=== PATIENT | female | born 1965 | race Caucasian/White ===

== ENCOUNTER → 2020-10-10 14:45 | Outpatient (BNVA) | payer OTHER, MEDICAID, SELFPAY | PROVIDERS: Visit Provider Anesthesiology | DX: Z76.89 Persons encountering health services in other specified circumstances (principal) ==

== ENCOUNTER → 2021-05-14 15:08 | Outpatient (BNVA) | payer OTHER, MEDICAID, SELFPAY | PROVIDERS: Visit Provider Anesthesiology ==

== ENCOUNTER 2021-08-05 06:27 | Outpatient (REF) | payer OTHER, MEDICAID, SELFPAY | END 2021-08-05 06:28 | disposition home or self-care (01) | LOC: HO.RADIR 06:27 | PROVIDERS: Visit Provider Anesthesiology | DX: M54.81 Occipital neuralgia (principal); G89.4 Chronic pain syndrome; S12.9XXA Fracture of neck, unspecified, initial encounter | CPT/HCPCS: 64405 ==

== ENCOUNTER → 2021-08-11 10:37 | Outpatient (BNVA) | payer OTHER, MEDICAID, SELFPAY | PROVIDERS: Visit Provider Anesthesiology ==

== ENCOUNTER 2025-09-11 11:36 | Outpatient (REF) | payer OTHER, SELFPAY ==
--- NOTE | ~2025-09-11 | MM_ITS ---
EXAMINATION: DXA BONE DENSITY AXIAL HISTORY: OSTEOPOROSIS TECHNIQUE: [email or web address] Dual energy absorptiometry (DEXA) of the lumbar spine, total left hip, and femoral neck was performed. COMPARISON: There are no prior studies for comparison. FINDINGS: The bone mineral density of the lumbar spine is 1.265 g/cm2, corresponding to a T-score of 0.5, and a Z-score of 2.0. This is indicative of normal bone mineral density. The bone mineral density of the left total hip is 1.050 g/cm2, corresponding to a T-score of 0.3, and a Z-score of 1.4. This is indicative of normal bone mineral density. The bone mineral density of the left femoral neck is 0.927 g/cm2, corresponding to a T-score of -0.8, and a Z-score of 0.6. This is indicative of normal bone mineral density. MM/XR DEXA axial skeleton IMPRESSION: Based on bone mineral density, and according to World Health Organization (WHO) criteria, the diagnosis is consistent with normal bone mineral density. Statistically, 68% of repeat scans fall within 1 SD (+/- 0.010 g/cm2 for AP spine L1-L4) and 1 SD (+/- 0.012 g/cm2 for femur total) FRAX is a trademark of the [employer] [place] [facility] Metabolic Bone Disease, a World Health Organization (WHO) Collaborating Center. Electronically signed by: Ciro Silveira MD 09/11/2025 12:46 PM EDT
--- OUTSIDE RECORDS SUMMARY | 2025-09-11 14:10 | XMS_ITS | Encounter Summary ---
Author Organization [facility] Address [address] [place] [address] Care Team Providers Care Podopediatrician Name Role Phone Jose Pandey MD Primary Care Provider [phone] Reason for Visit * Reason Onset Date Comments Forms/questionnaires 08/31/2025 Encounter Details Date Type Department Care Team (Late st Contact Info) Description 08/31/2025 Telephone Internal Medicine - [address] [phone] Jose Pandey MD [address] [place] [phone] Social History Tobacco Use Types Packs/Day Years Used Date Smoking Tobacco: Every Day Cigarettes Last attempted to quit: 09/30/2019 Smokeless Tobacco: Never Alcohol Use Standard Drinks/Week Comments Not Currently 0 (1 standard drink = 0.6 oz pur e alcohol) Housing Instability Answer Date Recorde d Are you worried that in the next 2 months you may not have stable housing? No 07/27/2025 Food Access & Nutrition Answer Date Rec orded Do you have access to a vari ety of food including fruits and vegetables? Yes 07/27/2025 Access to Healthcare Answer Date Record ed Within the last 3 months, renea vazquez many times did you visit the emergency department for your medical care? 6 07/27/2025 Health Literacy Answer Date Recorded How often do you need to hav e someone help you when you read instructions, pamphlets, or other written material from your doctor or pharmacy? Patient declined 07/27/2025 Caregiver: How often do you need to have someone help you when you read instructions, pamphlets, or other written material from your doctor or pharmacy? Not on file 025 Financial Risk Answer Date Recorded How hard is it for you to pa y for the very basics like food, housing, medical care, and air conditioning / heating? Somewhat hard 07/27/2025 Transportation Answer Date Recorded Has the lack of transportati on kept you from meetings, work, or from getting things needed for daily living? No Has the lack of transportati on kept you from medical appointments or from getting medications? No 07/27/2025 Social Isolation Answer Date Recorded How often do you feel lonely or isolated from those around you? Patient declined 07/27/2025 Food Risk Answer Date Recorded Within the past 12 months we worried whether our food would run out before we got money to buy more. Patient declined 025 Within the past 12 months th e food we bought just didn't last and we didn't have money to get more. Patient declined 06/30 Dependent Care Answer Date Recorded Do you need help finding or paying for care for your loved ones. For example, child care attendant school or elderly care for an older adult? No 07/27/2025 Education Answer Date Recorded Do you think completing more education or training, like finishing a GED, going to college, or learning a trade, would be helpful for you? Yes 07/27/2025 Employment and Income Answer Date Recor ded During the last four weeks, have you been actively looking for work? No 07/27/2025 Living Situation Answer Date Recorded What is your living situation? Unrecognized valu e 07/27/2025 Interpersonal Safety Answer Date Record ed Physical Abuse Unrecognized value 06/02/2025 Verbal Abuse Unrecognized value 06/02/2025 Comments No Sex and Gender Information Value Date Recorded Sex Assigned at Female 01/02/2025 9:04 AM EST Legal Sex Female 4:22 AM EST Gender Identity Female 01/02/2025 9:04 AM EST Sexual Orientation Not on file documented as of this encounter Functional Status * Are you deaf or do you have serious difficulty hearing? Answer Date of Assessment Author No 06/05/2025 11:30 AM EDT Marylu Ramos RN * Are you blind or do you have serious difficulty seeing, even when wearing glasses? Answer Date of Assessment Author No 06/05/2025 11:30 AM EDT Marylu Ramos RN * Do you have serious difficulty walking or climbing stairs? Answer Date of Assessment Author No 06/05/2025 11:30 AM EDT Marylu Ramos RN * Do you have serious difficulty dressing or bathing? Answer Date of Assessment Author No 06/05/2025 11:30 AM EDT Marylu Ramos RN * Because of a physical, mental, or emotional condition, do you have serious difficulty doing errandsalone such as visiting the doctor? Answer Date of Assessment Author No 06/05/2025 11:30 AM EDT Marylu Ramos RN documented as of this encounter Mental Status * Because of a physical, mental, or emotional condition, do you have serious difficulty concentrating, remembering, or making decisions? (5 years old or older) Answer Entry Date Author No 06/05/2025 11:30 AM EDT Marylu Ramos RN documented in this encounter Progress Notes * Laxmi Sen MA - 09/05/2025 11:34 AM EDT Please start a new message as this is a different form form her FMLA--this one is a pd FMLA (PFML) * Malena Elkins - 09/05/2025 9:27 AM EDT Pt came in and dropped off copy of FMLA paperwork, placed in forms bin. * Marielos Sabillon - 08/31/2025 3:06 PM EDT See encounter from 07/31/25 FMLA, pt called to ask if ready. It has been closed please advise if ready for pt to order picker/assembler documented in this encounter Plan of Treatment Upcoming Encounters Date Type Department Care Team (Late st Contact Info) Description 11/02/2025 8:15 AM EST Office Visit Internal Medicine - [address] [phone] Jose Pandey MD [address] [place] [phone] 11/16/2025 2:45 PM EST Office Visit Internal Medicine - [address] [phone] Jose Pandey MD [address] [place] [phone] documented as of this encounter Visit Diagnoses Not on filedocumented in this encounter Additional Health Concerns Assessment Noted Time PHQ-9 Depression Total Score: 2 07/27/20 25 9:36 AM EDT documented as of this encounter Care Teams Podopediatrician Relationship Specialty Start Date End Date Jose Pandey MD [address] [place] [phone] PCP - General Internal Medicine 11/18/20 documented as of this encounter
--- OUTSIDE RECORDS SUMMARY | 2025-09-11 14:10 | XMS_ITS | Clinical Summary ---
Author Organization [facility] Address [address] [place] [address] Care Team Providers Care Cable Installation Manager Name Role Phone Jose Pandey MD Primary Care Provider [phone] Social History Tobacco Use Types Packs/Day Years Used Date Smoking Tobacco: Never Assessed Sex and Gender Information Value Date Recorded Sex Assigned at Not on file Gender Identity Not on file Sexual Orientation Not on file Plan of Treatment Health Maintenance Due Date Last Done Comments Hepatitis C Screening 1964 Depression Screening 1976 Preventative Health Evaluation 1982 DTap / Tdap / Td (1 - Tdap) 1983 Cervical Cancer Screening (Pap Smear) 1985 Colon Cancer Screening (Colonoscopy) 2009 Breast Cancer Screening (Mammogram) 2014 Shingrix-Zoster Vaccine (1 o f 2) 2014 COVID-19 Vaccine (3 - 2024-2 6 season) 2025 03/13/2021, 02/20/2021 Influenza Vaccine (#1) 2025 RSV Adult > 60+ Yrs or (1 - 1-dose 75+ series) 2039 Hepatitis B Vaccines Aged Out No long er eligible based on patient's age to complete this topic Pneumococcal Vaccine Aged Out No long er eligible based on patient's age to complete this topic RSV Ped < 20 months Aged Out No longe r eligible based on patient's age to complete this topic Care Teams Cable Installation Manager Relationship Specialty Start Date End Date Jose Pandey MD PCP - General Internal Medicine 04/16/21
--- OUTSIDE RECORDS SUMMARY | 2025-09-11 14:10 | XMS_ITS | Encounter Summary ---
Author Organization [facility] Address [address] [place] [address] Care Team Providers Care Ramp Flight Attendant Name Role Phone Jose Pandey MD Primary Care Provider [phone] Reason for Visit * Reason Onset Date Comments Spine Injury 08/29/2025 Encounter Details Date Type Department Care Team (Late st Contact Info) Description 08/29/2025 [facility] [address] [place] [phone] Jose Pandey MD [address] [place] [phone] Social History Tobacco Use Types Packs/Day Years [...] ed Within the last 3 months, renea w many times did you visit the emergency [...] care for your loved ones. For example, early childhood aide classroom or elderly care for an older adult? [...] Entry Date Author No 06/05/2025 11:30 AM EDMarylu Cochran RN documented in this encounter Progress Notes * Génesis Mortensen MA - 08/29/2025 3:22 PM EDT Patient informed * Jose Pandey MD - 08/29/2025 12:35 PM EDT Unfortunately this is a medication that I do not prescribe-if she is in so much pain requesting Dilaudid would advise she go to go to hospital * Yuli Cassidy MA - 08/29/2025 11:48 AM EDT Per patient she don't see orthopedic. * Jose Pandey MD - 08/29/2025 11:33 AM EDT Patient needs to reach out to her orthopedist as she is under their care for this * Laurita Dye RN - 08/29/2025 9:23 AM EDT spoke to pt-reports of needing the stronger pain medcn -hydromorphone due to much midback pain with 3 spinal fractures which is currently being treated by [facility]. she states the methocarbamol does not really do much relief just like the tizanidine. she is waiting for the clinic to call her for bone density testing prior to spinal procedure. NORBERTO 08/14/25 * Jabari Alicea - 08/29/2025 8:49 AM EDT Patient call requires triage: Symptoms patient is presenting: pt would like to be prescribed morphine. pt is currently seeing [facility] [employer]EEP[employer] SUPERVISOR states that pt has 3 fractures on her spine doing zip line. Pt currently being scheduled a bone density test. Pt uses hydromorphone at night time for sleeping, pt states she takes more than 1 pill for this med to work. How long has patient had these symptoms?: 07/30/25 For ALL patients calling to schedule any appointment (routine, sick visit, follow up, consult, etc.) in the outpatient setting please ask the following questions: Do you have fever of higher than 101, sore throat with difficulty swallowing or severe shortness ofbreath? no If YES to any of these above symptoms, send a message to triage and do not book. Red dot. If no, an audio or video visit should be booked. Have you had close contact with someone with Coronavirus in the last 14 days? no Have you traveled abroad? no Have you traveled recently to another state outside of [place], [place], [place], [place], [place], [place], [place]? no o If yes, did you quarantine for 14 days or have a negative covid test? no If yes to any of the above, patient is not to be scheduled in office until after 14 day quarantine or negative covid test. If pain or injury related was it due to an accident at work or from a motor vehicle accident? If yes, date of accident/Injury: No If yes, gather 3rd libertarian insurance information Third Republican Information: not applicable PCP: Jose Pandey MD Payor: DUSTY / Plan: RUBÉNPOINT / Product Type: *No Product type* / documented in this encounter Plan of Treatment Upcoming Encounters Date Type Department Care Team (Late st Contact Info) Description 11/02/2025 8:15 AM EST Office Visit Internal Medicine - [address] [phone] Jose Pandey MD [address] [place] [address] 11/16/2025 2:45 PM EST Office Visit Internal Medicine - [address] [phone] Jose Pandey MD [address] [place] [phone] documented as of this encounter Visit Diagnoses Not on filedocumented in this encounter Additional Health Concerns Assessment Noted Time PHQ-9 Depression Total Score: 2 07/27/20 25 9:36 AM EDT documented as of this encounter Care Teams Ramp Flight Attendant Relationship Specialty Start Date End Date Jose Pandey MD [address] [place] [phone] PCP - General Internal Medicine 11/18/20 documented as of this encounter
--- OUTSIDE RECORDS SUMMARY | 2025-09-11 14:11 | XMS_ITS | Clinical Summary ---
Author Organization [place] [address] Jessica sethi [facility] Address [address] [facility] [place] [address] Phone Care Team Providers Care Commercial Carpenter Name Role Phone Cyrus Hamilton MD Primary Care Provider [phone] Allergies Active Allergy Reactions Criticality Noted Date Comments Codeine 02/25/2017 Double vision Gabapentin High 03/08/2019 Side effects- scattered brain Lisinopril 02/25/2017 cough Omeprazole Anaphylaxis High 03/26/2021 Oxycodone Hcl 03/26/2021 Double vision Oxycodone-Acetaminophen 02/25/2017 Double vision Penicillins Anaphylaxis High 04/10/2019 As a child-doesn't recall details Oxycodone-Aspirin 10/11/2024 Procaine 03/26/2021 Age 25 saw the light Near LOC Tolerates Lidocaine Cdjfmvh-Yzl-Dxa Reductase Inhibitors 02/25/2017 Muscle aches Sulfa (Sulfonamide Antibiotics) 02/25/2017 nausea Medications cholecalcifero l (VITAMIN D-3) 50 mcg (2,000 unit) capsule Take by mouth daily. Active cyanocobalamin (VITAMIN B-12) 500 mcg tablet Take by mouth daily. Active EPINEPHrine (EpiPen 2-Damien) 0.3 mg/0.3 mL injection Inject 1 Device as directed as needed (anaphylaxis ). Use as directed 2 Active famotidine (PEPCID) 40 mg tablet Take 1 tablet (40 mg total) by mouth 2 (two) times a day. 180 each 3 5 026 Active losartan (COZAAR) 25 mg tablet Take 1 tablet (25 mg total) by mouth 1 (one) time each day. 90 tablet 1 5 025 Active hydrOXYzine HCL (ATARAX) 25 mg tablet Take 1 tablet (25 mg total) by mouth every 8 (eight) hours if needed for anxiety. 90 tablet 2 5 Active ezetimibe (ZETIA) 10 mg tablet Take 1 tablet (10 mg total) by mouth 1 (one) time each day. 90 tablet 1 5 Active DULoxetine (CYMBALTA) [address] capsule Take 1 capsule (60 mg total) by mouth 1 (one) time each day. 90 capsule 1 5 Active amLODIPine (NORVASC) 10 mg tablet Take 1 tablet (10 mg total) by mouth 1 (one) time each day. 90 tablet 1 5 Active albuterol HFA (PROAIR HFA ; PROVENTIL HFA ; VENTOLIN HFA) 90 mcg/actuation inhaler Inhale 2 puffs by mouth every 4 (four) hours if needed for wheezing. 6.7 g 2 5 Active levothyroxine (SYNTHROID, LEVOTHROID) 112 mcg tablet Take 1 tablet (112 mcg total) by mouth 1 (one) time each day. 30 each 11 5 026 Active HYDROmorphone (DILAUDID) 4 mg tablet Take 1 tablet (4 mg total) by mouth every 6 (six) hours if needed. for severe pain Max Daily Amount: 16 mg 5 Active methocarbamoL (ROBAXIN) 750 mg tablet Take 1 tablet (750 mg total) by mouth 3 (three) times a day if needed for muscle spasms. 30 tablet 5 Active tiZANidine (ZANAFLEX) 4 mg tablet Take 1 tablet (4 mg total) by mouth 3 (three) times a day if needed. 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 She followed up with Dr. Peraza after that, had occipital injections that helped her occipital headache, states Dr. Peraza wanted to implant a TENS unit on the posterior lateral side of her head for her persistent occipital pain. She comes in today stating she has persistent similar symptoms, primarily was coming in today for her mid and low back pain, states she has significant pain in the sacrum down to the tailbone. She has an implanted TENS unit in the left upper buttock/low back region, she feels this could be contributing to some of her pain. She does feel the TENS unit helps her pain however, when her pain is severe she will turn it on. She gets some symptoms in the left lateral leg, numbness in the foot at times, this is been going on for a few years. She has a spinal cord stimulator, feels that one of the SQ stitches in the thoracic region constantly pulls on one of her paraspinous muscles with activity throughout the day, is bothersome and chronic. Patient is s/p C4-7 ACDF, C3-7 decompression in 2015 and s/p L4-5 decompression and fusion 2016, both done by Dr. Thomson. Patient had lumbar CAT scan 07/14/2022 at [facility] that shows L3-4 stenosis, mild to moderate multilevel degenerative changes, no significant left-sided stenosis. Her L4-5 fusion hardware appears intact. Dr. Matthews reviewed patient's lumbar CAT scan on today's visit, is not recommending any surgical intervention for her chronic pain, and she is not describing typical neurogenic claudication symptoms that would fit with her L3-4 stenosis and benefit with decompression at this time. I reviewed patient's CAT scan images/findings with her as well on today's visit. We talked about conservative treatment options like physical therapy with stretching, patient would like to follow-up with pain management but try a different office, we will refer her to [facility], she prefers [place] if possible. All questions answered, she will call with any concerns or questions. Occipital neuralgia of left side 12/17/2021 Sleep disturbance 03/08/2019 Smoking 03/08/2019 Chronic low back pain 06/08/2018 Cervical disc disease 03/18/2017 Overview (10/11/2024): S/p fusion Dr Thomson Depression with anxiety 03/18/2017 Essential hypertension 03/18/2017 PTSD (post-traumatic stress disorder) 03/18/2017 Brachial neuritis or radiculitis 02/25/2017 Hyperlipidemia 02/25/2017 Hypothyroid 02/25/2017 Lumbar disc disease 02/25/2017 Lumbar radicular syndrome 02/25/2017 Encounters Date Type Department Care Team Description 08/31/2025 Telephone Internal Medicine - [facility] [address] [place], [place] [address], [place] [phone] Cyrus Hamilton MD 08/29/2025 Telephone Internal Medicine - [facility] [address] [place], [place] [address] [phone] Cyrus Hamilton MD 08/14/2025 1:30 PM EDT [facility] [place] [phone] Cyrus Hamilton MD Necrotizing pancreatitis (Primary Dx); Pseudocyst of pancreas; Closed compression fracture of body of L1 vertebra ([facility] V24, [facility] V28) 08/14/2025 Billing Patient Not Present Internal [facility] [address] [place], [place] [address] [place] [phone] Cyrus Hamilton MD Essential (primary) hypertension (Primary Dx); Hyperlipidemia, unspecified hyperlipidemia type; History of falling; Other specified diseases of pancreas; Nicotine dependence, cigarettes, uncomplicated; Arthrodesis status 08/13/2025 [facility] [address] [place], [place] [address], [place] [phone] Cyrus Hamilton MD 08/10/2025 Telephone Internal [facility] - [facility] [address] [place], [place] [phone] Cyrus Hamilton MD 08/10/2025 Telephone Internal Medicine - [facility] [address] [place], [place] [phone] Cyrus Hamilton MD 08/06/2025 Telephone Internal Medicine - [facility] [address] [place], [place] [phone] Cyrus Hamilton MD 07/31/2025 Telephone Internal Medicine - [facility] [address] [place], [place] [phone] Cyrus Hamilton MD 07/24/2025 Telephone Internal Medicine - [facility] [address] [place], [place] [phone] Cyrus Hamilton MD 07/24/2025 Telephone Internal Medicine - [facility] [address] [place], [place] [phone] Cyrus Hamilton MD 07/19/2025 Telephone Internal Medicine - [facility] [address] [place], [place] [phone] Cyrus Hamilton MD 07/19/2025 Telephone Internal Medicine - [facility] [address] [place], [place] [phone] Cyrus Hamilton MD 07/12/2025 Telephone Internal Medicine - [facility] [address] [place], [place] [phone] Cyrus Hamilton MD 07/11/2025 Telephone Internal Medicine - [facility] [address] [place], [place] [phone] Cyrus Hamilton MD 07/09/2025 Telephone Internal Medicine - [facility] [address] [place], [place] [phone] Cyrus Hamilton MD 06/13/2025 9:15 AM EDT Office Visit Internal Medicine - [facility] [address] [place] [phone] Cyrus Hamilton MD Necrotizing pancreatitis (Primary Dx) from Last 3 Months Immunizations Immunization Administration Dates Next Due Influenza trivalent, 0.5mL, preservative free (Fluarix; FluLaval; Fluzone) ages 6mo and older (Afluria) 3 years and older 08/16/2022,08/04/2020,09/16/2019 Qudini Covid-19 Bivalent, Or iginal + Ba.1 (Non-US Trademark [employer] / TLL Bivalent) 08/16/2022 [employer]ini SARS-CoV-2 COVID-19, mRNA, LNP-S, preservative free 03/13/2021,02/20/2021 Tdap Tetanus diptheria acell ular pertussis (Boostrix; Adacel) 7yo and older 05/15/2024 Surgical History Surgery Date Site/Laterality Comments NECK SURGERY PROCEDURE: HISTORICAL NECK SURGERY; COMMENT: 06/2016, fusion TONSILLECTOMY PROCEDURE: HISTORICAL TONSILLECTOMY BACK SURGERY 10/2023 PROCEDURE: HISTORICAL BACK SURGERY; COMMENT: stimulator removed Medical History Medical History Date Comments Essential hypertension 03/18/2017 DX:Essent ial hypertension Hypothyroid 02/25/2017 DX:Hypothyroid Hyperlipidemia 02/25/2017 DX:Hyperlipidemi a Chronic low back pain 06/08/2018 DX:Chronic low back pain PTSD (post-traumatic stress disorder) 03/18/2017 DX:PTSD (post-traumatic stress disorder) Depression with anxiety 03/18/2017 DX:Depre ssion with anxiety Cervical disc disease 03/18/2017 DX:Cervica l disc disease; COMMENT: S/p fusion Dr Thomson Occipital neuralgia of left side 12/17/2021 DX:Occipital neuralgia of left side GERD (gastroesophageal reflux disease) Hypothyroid Family History Medical History Relation Name Comments Heart failure Brother 1 No Known Problems Brother 2 Parkinson's Disease Father Colon cancer Maternal Grandfather Colon cancer Maternal Grandmother Colon cancer Mother Colon cancer Other maternal Coronary artery disease Paternal Grandmother No Known Problems Sister Breast cancer Neg Hx Relation Name Status Comments Brother 1 Alive Brother 2 Alive Father Alive Maternal Grandfather Maternal Grandmother Mother Other Paternal Grandmother Sister Alive Social History Tobacco Use Types Packs/Day Years Used Date Smoking Tobacco: Every Day Cigarettes Last attempted to quit: 09/30/2019 Smokeless Tobacco: Never Tobacco Cessation:Ready to Q uit: Not Asked; Counseling Given: Not Answered Alcohol Use Standard Drinks/Week Comments Not Currently [...] Record ed Within the last 3 months, ho w many times did you visit the [...] for your loved ones. For example, child advocate or elderly care for an older adult? [...] AM EST Sexual Orientation Not on file Obstetrics History Last Filed Vital Signs Vital Sign Reading Time Taken Comments Blood Pressure 136/84 08/14/2025 1:32 PM EDT Pulse 102 08/14/2025 1:32 PM EDT Temperature 37 C (98.6 F) 06/05/2025 10:24 AM EDT Respiratory Rate 19 06/05/2025 11:30 AM EDT Oxygen Saturation 95% 06/05/2025 11:30 AM EDT Inhaled Oxygen Concentration - - Weight 62.1 kg (137 lb) 08/14/2025 1:32 PM EDT Height 152.4 cm (5') 08/14/2025 1:32 PM EDT Body Mass Index 26.76 08/14/2025 1:32 PM EDT Plan of Treatment Upcoming Encounters Date Type Department Care Team (Late st Contact Info) Description 11/02/2025 8:15 AM EST Office Visit Internal Medicine - [address] [phone] Cyrus Hamilton MD [address] [place] [address] 11/16/2025 2:45 PM EST Office Visit Internal Medicine - [address] [phone] Cyrus Hamilton MD [address] [place] [phone] Health Maintenance Due Date Last Done Comments Pneumococcal Vaccine: 50+ Years (1 of 2 - PCV) 1983 Cervical Cancer Screening: Pap Smear 1985 RSV Immunization Adult Patients (1 - Risk 50-74 years 1-dose series) 2014 Zoster Vaccines (1 of 2) 2014 HIV Screening 11/07/2022 Breast Cancer Screening 08/07/2024 08/07/20, 07/10/2021, 05/22/2019 COVID-19 Vaccine ( season) 2025 10/11/2021, 03/13/2021, 02/20/2021 Influenza Vaccine (#1) 2025 , 10/11/2021, 08/04/2020, Additional history exists Hypertension/CHF/CAD Annual BMP Blood Test 06/05/2026 06/05/2025, 06/04/2025, 06/04/2025, Additional history exists Social Influencers of Health Screening 07/27/2026 07/27/2025 Cholesterol Screening (Lipid Panel) 05/16/2030 05/16/2025, 11/14/2024, 05/15/2024, Additional history exists Colorectal Cancer Screening: Colonoscopy 02/05/2031 02/05/2021 DTaP,Tdap,and Td Vaccines (2 - Td or Tdap) 05/15/2034 05/15/2024 Hepatitis C Screening Completed 10/18/2019 Depression Screening Completed 07/27/2025 HIB Vaccines Aged Out No longer eligi ble based on patient's age to complete this topic HPV Vaccines Aged Out No longer eligi ble based on patient's age to complete this topic Hepatitis A Vaccines Aged Out No long er eligible based on patient's age to complete this topic Hepatitis B Vaccines Aged Out No long er eligible based on patient's age to complete this topic IPV Vaccines Aged Out No longer eligi ble based on patient's age to complete this topic MMR Vaccines Aged Out No longer eligi ble based on patient's age to complete this topic Meningococcal ACWY Vaccine Aged Out N o longer eligible based on patient's age to complete this topic Meningococcal B Vaccine Aged Out No l onger eligible based on patient's age to complete this topic RSV Immunization Patients Under 20 months Aged Out No longer eligible based on patient's age to complete this topic Varicella Vaccines Aged Out No longer eligible based on patient's age to complete this topic Procedures Procedure Name Priority Date/Time Associated Diagnosis Comments BASIC METABOLIC PANEL Routine 06/05/2025 4:23 AM EDT LIPID PANEL WITH REFLEX TO DIRECT LDL Routine 05/16/2025 8:51 AM EDT Pure hypercholesterolemia Essential hypertension Hypothyroidism, unspecified type [facility] SCREENING DIGITAL Routine 08/07/2022 1:22 PM EDT Encounter for screening mammogram for malignant neoplasm of breast COLONOSCOPY Routine 02/05/2021 HEPATITIS C SCREENING Routine 10/18/2019 from Last 3 Months or Most Recently Relevant to Health Maintenance Results * (ABNORMAL) Basic metabolic panel (06/05/2025 4:23 AM EDT) Sodium 137 133 - 145 mmol/L LAB CHEMISTRY METHOD 06/05/2025 5:11 AM [facility] Potassium 3.2(L) 3.5 - 5.5 mmol/L LAB CHEMISTRY METHOD 06/05/2025 5:11 AM [facility] Chloride 103 96 - 110 mmol/L LAB CHEMISTRY METHOD 06/05/2025 5:11 AM [facility] CO2 29 21 - 32 mmol/L LAB CHEMISTRY METHOD 06/05/2025 5:11 AM [facility] Anion Gap 5 3 - 11 LAB CHEMISTRY METHOD 06/05/2025 5:11 AM [facility] Glucose 110(H) 70 - 100 mg/dL LAB CHEMISTRY METHOD 06/05/2025 5:11 AM [facility] BUN 6 5 - 25 mg/dL LAB CHEMISTRY METHOD 06/05/2025 5:11 AM EDT [facility] Creatinine 0.50 0.50 - 1.10 mg/dL LAB CHEMISTRY METHOD 06/05/2025 5:11 AM [facility] eGFR 107 >=60 mL/min/1. 73m2 LAB CHEMISTRY METHOD 06/05/2025 5:11 AM T [facility] Comment:Calculation based on the Chronic Kidney Disease Epidemiology Collaboration (CKD-EPI) equation refit without adjustment for race. BUN/Creatinine Ratio 12.0 LAB CHEMISTRY METHOD 06/05/2025 5:11 AM [facility] Calcium 8.9 8.5 - 10.5 mg/dL LAB CHEMISTRY METHOD 06/05/2025 5:11 AM [facility] Blood Venous blood specimen / Unknown Venipuncture / Unknown 06/05/2025 4:23 AM EDT 06/05/2025 4:48 AM EDT us Errol Prather MD LAB BLOOD ORDERABLES Final Result [facility] [address] [place] [address], * (ABNORMAL) Lipid panel with reflex to direct LDL (05/16/2025 8:51 AM EDT) Cholesterol 286(H) 0 - 200 mg/dL LAB CHEMISTRY METHOD 05/16/2025 12:16 PM T [facility] Triglycerides 444(H) 0 - 150 mg/dL LAB CHEMISTRY METHOD 05/16/2025 12:16 PM [facility] HDL 38(L) >=40 mg/dL LAB CHEMISTRY METHOD 05/16/2025 12:16 PM [facility] LDL Calculated 159(H) 0 - 100 mg/dL LAB CHEMISTRY METHOD 05/16/2025 12:16 PM T [facility] Comment:Unable to calculate when triglycerides >400 mg/dL. VLDL Cholesterol Néstor 88.8 mg/dL LAB CHEMISTRY METHOD 05/16/2025 12:16 PM EDT [facility] Comment:Unable to calculate when triglycerides >400 mg/dL. Non HDL Chol. (LDL+VLDL) 248(H) <145 mg/dL LAB CHEMISTRY METHOD 05/16/2025 12:16 PM EDT [facility] Comment:Unable to calculate when triglycerides >400 mg/dL. Chol/HDL Ratio 7.5(H) 0.0 - 4.4 LAB CHEMISTRY METHOD 05/16/2025 12:16 PM EDT [facility] Blood Venous blood specimen / Unknown Venipuncture / Unknown 05/16/2025 8:51 AM EDT 05/16/2025 8:51 AM EDT us Cyrus Hamilton MD LAB BLOOD ORDERABLES Final Res ult [facility] [address] [place] [address], * [place] SCREENING DIGITAL (08/07/2022 1:22 PM EDT) Anatomical Region Laterality Modality Mammography 08/07/2022 12:4 2 PM EDT Narrative 08/07/2022 1:22 PM EDT [facility] Diagnostic Imaging Department [address] [place] [address] Patient: YURIDIABUBBA /Age/Sex: 1965 - 57 - F Unit#: [id number] Location/Status: SPDIMAM/REG CLI Mnemonic/Ordering Site: DIGSC/SPMAM Ordering Physician: CYRUS HAMILTON MD [facility] Screening Digital - 08/07/22 - 1304 EXAM: [facility] Screening Digital EXAM DATE AND TIME: 08/07/2022 1:05 PM HISTORY: Screening. COMPARISON: 07/09/21, 05/22/19, 06/30/16 TECHNIQUE: CC and MLO views of both breasts were obtained using full field digital mammography. Bilateral digital breast tomosynthesis was performed in the MLO projection. Computer aided detection with [employer] 7.2-H and [employer] 3D 3.1 was employed. TISSUE DENSITY: b. There are scattered areas of fibroglandular density. FINDINGS: No suspicious masses, grouped microcalcifications, or areas of architectural distortion are seen. The skin and vascularity are unremarkable. IMPRESSION: Stable mammographic appearance of the breasts. No evidence of malignancy is seen. A negative mammogram in the presence of a clinically suspicious palpable abnormality does not preclude the possibility of malignancy or alter the indications for biopsy. BI-RADS: Category 1: Negative RECOMMENDATION(S): 1: Routine screening mammogram BILATERAL in 1 year. [id number], [id number] 3341F, 7025F Dictating Physician: JENNIFER MCCAULEY MD Electronically Signed by: JENNIFER MCCAULEY MD Dic Date/Time: 08/07/22 1321 Sign date/Time: 08/07/22 1322 Procedure Note Jennifer Mccauley MD - 11/18/2022 [facility] Diagnostic Imaging Department [address] [place] [id number] Patient: BUBBA SHI /Age/Sex: 1965 - 57 - F Unit#: [id number] Location/Status: SPDIMAM/REG CLI Mnemonic/Ordering Site: [facility] Ordering Physician: CYRUS HAMILTON MD [facility] Screening Digital - 08/07/22 - 1304 EXAM: [facility] Screening Digital EXAM DATE AND TIME: 08/07/2022 1:05 PM HISTORY: Screening. COMPARISON: 07/09/21, 05/22/19, 06/30/16 TECHNIQUE: CC and MLO views of both breasts were obtained using fullfield digital mammography. Bilateral digital breast tomosynthesis was performedin the MLO projection. Computer aided detection with [employer] 7.2-H and[employer] 3D 3.1 was employed. TISSUE DENSITY: b. There are scattered areas of fibroglandular density. FINDINGS: No suspicious masses, grouped microcalcifications, or areas ofarchitectural distortion are seen. The skin and vascularity are unremarkable. IMPRESSION: Stable mammographic appearance of the breasts. No evidence of malignancyis seen. A negative mammogram in the presence of a clinically suspicious palpable abnormality does not preclude the possibility of malignancy or alter the indications for biopsy. BI-RADS: Category 1: Negative RECOMMENDATION(S): 1: Routine screening mammogram BILATERAL in 1 year. 93104, [id number] 3341F, 7025F Dictating Physician: JENNIFER MCCAULEY MD Electronically Signed by: JENNIFER MCCAULEY MD Dic Date/Time: 08/07/22 1321 Sign date/Time: 08/07/22 1322 Cyrus Hamilton MD IMG BI PROCEDURES Final Result * Colonoscopy (02/05/2021) Colonoscopy abnormal, abstracted Anatomical Region Laterality Modality Other Historical Provider HEALTH MAINTENANCE Final Result * Hepatitis C Screening (10/18/2019) Hepatitis C Screening abstracted Historical Provider HEALTH MAINTENANCE Final Result from Last 3 Months or Most Recently Relevant to Health Maintenance Insurance [employer] Advance Directives * Full Code - Default (Latest Code Status on File) Date Activated Date Inactivated Comments 06/05/2025 1:27 AM 06/05/2025 3:29 PM This is order is used when code status has not been discussed with the patient, or code status is otherwise unknown/unconfirmed To update the patient's code status, place a code status order. Do not modify or discontinue any currently active code status orders. * Full Code - Confirmed Date Activated Date Inactivated Comments 06/02/2025 8:59 PM 06/04/2025 4:49 PM This code stat us was ascertained in the following way: Code status discussion: discussion with patient To update the patient's code status, place a code status order. Do not modify or discontinue any currently active code status orders. * Full Code - Default Date Activated Date Inactivated Comments 06/02/2025 6:01 PM 06/02/2025 8:59 PM This is order is used when code status has not been discussed with the patient, or code status is otherwise unknown/unconfirmed To update the patient's code status, place a code status order. Do not modify or discontinue any currently active code status orders. Healthcare Agents on File Name Relationship Healthcare Agent [facility] Communication Marquis Summers Significant Other Second Alterna te Health Care Agent Care Teams Commercial Carpenter Relationship Specialty Start Date End Date Cyrus Hamilton MD [address] [place] [id number] PCP - General Internal Medicine 11/18/20
== END 2025-09-11 11:37 | disposition home or self-care (01) ==
LOC: HO.MAMMO 11:36
PROVIDERS: PCP Internal Medicine; Visit Provider Internal Medicine
DX: M81.0 Age-related osteoporosis without current pathological fracture (principal)
CPT/HCPCS: 77080

== ENCOUNTER → 2025-09-11 12:00 | Outpatient (BNV) | payer OTHER, SELFPAY | PROVIDERS: PCP Internal Medicine; Visit Provider Radiology Diagnostic Radiology | DX: E28.39 Other primary ovarian failure (principal) | CPT/HCPCS: 77080 ==